=== PATIENT | male | born 1940 | race Caucasian/White ===

== ENCOUNTER 2022-01-23 14:30 | Inpatient (IN) | payer MEDICARE ==
[2022-01-23 16:28] VITALS: BMI 26.7
[2022-01-23] MEDS ORDERED: Nitroglycerin 0.4 MG TAB (25 Tab Bottle) SL PRN (18:08)
[2022-01-23] MEDS ORDERED: Senokot S 8.6-50 MG TAB PO PRN (18:12)
[2022-01-23] MEDS ORDERED: Bisacodyl 5 MG TAB PO PRN (18:12)
[2022-01-23] MEDS ORDERED: Acetaminophen 650 MG Suppository PR PRN (18:12)
[2022-01-23] MEDS ORDERED: Cepastat Lozenges 1 LOZ PO PRN (18:12)
[2022-01-23] MEDS ORDERED: Bisacodyl 10 MG SUPP PR PRN (18:12)
[2022-01-23] MEDS ORDERED: Loperamide HCl 2 MG CAP PO PRN ×2 (18:12)
[2022-01-23] MEDS ORDERED: Calcium Carbonate 500 MG ChewTAB PO PRN (18:12)
[2022-01-23] MEDS ORDERED: Guaifenesin DM 100-10/5 ML UDCUP PO PRN (18:12)
[2022-01-23] MEDS ORDERED: Sodium Chloride 0.65% Nasal 44 ML BOT EA NARE PRN (18:12)
[2022-01-23] MEDS ORDERED: Ondansetron ODT 4 MG TAB PO PRN (18:12)
[2022-01-23] MEDS ORDERED: Benzonatate 100 MG CAP PO PRN (18:12)
[2022-01-23] MEDS ORDERED: Artificial Tear Sol 15 ML BOT EA EYE PRN (18:12)
[2022-01-23] MEDS: Atorvastatin Calcium 20 MG TAB PO SCH (20:41)
[2022-01-23] MEDS: Famotidine 20 MG TAB PO SCH (20:41)
[2022-01-24 06:18] LABS: #Basophils 0.1 thou/uL (0.0-0.2); #Eosinphils 0.2 thou/uL (0.0-0.7); #Lymphocytes 1.8 thou/uL (1.20-3.40); #Neutrophils 8.7 thou/uL (1.40-6.50); %Basophils 0.8 % (0.0-1.0); %Lymphocytes 15.2 % (21.0-51.0); %Monocytes 8.7 % (0.0-10.0); %Neutrophils 73.4 % (42.0-75.0); Mean Corpuscular HGB CONC 31.7 g/dL (32.0-36.0); Mean Corpuscular Hemoglobin 27.5 pg (27.0-31.0); Mean Corpuscular Volume 86.9 fL (78.0-98.0); Mean Platelet Volume 9.3 fL (7.4-10.4); Platelet Count 178 thou/uL (130-400); RBC Distribution Width 14.1 % (11.5-14.5); Red Blood Cell (RBC) Count 3.28 mill/uL (4.70-6.10); White Blood Cell (WBC) Count 11.9 thou/uL (4.8-10.8)
[2022-01-24 06:33] LABS: ALT (SGPT) 19 U/L (8-55); AST (SGOT) 20 U/L (5-34); Albumin 3.6 g/dL (3.4-4.8); Alkaline Phosphatase 87 U/L (40-110); Anion Gap 16 mmol/L (10-20); BUN (Urea Nitrogen) 34 mg/dL (8.4-25.7); Calc. Creatinine Clearance 72 mL/min (70-130); Calcium 8.6 mg/dL (7.8-10.44); Carbon Dioxide 22 mmol/L (23-31); Chloride 101 mmol/L (98-107); Globulin 2.4 g/dL (2.4-3.5); Glucose 114 mg/dL (83-110); Potassium 3.8 mmol/L (3.5-5.1); Sodium 135 mmol/L (136-145)
[2022-01-24] MEDS ORDERED: Enoxaparin Sodium 40 MG/0.4 ML SYRINGE SC SCH (09:00)
[2022-01-24] MEDS: Famotidine 20 MG TAB PO SCH ×2 (09:09→20:12)
[2022-01-24] MEDS: Citalopram 20 MG TAB PO SCH (09:10)
[2022-01-24] MEDS: Aspirin 81 mg Enteric Coated Tablet PO SCH (09:10)
[2022-01-24] MEDS: Oxybutynin ER 5 MG TAB PO SCH (09:10)
[2022-01-24] MEDS: Atenolol 25 MG TAB PO SCH (09:15)
[2022-01-24] MEDS: Amlodipine 5 MG TAB PO SCH (09:16)
[2022-01-24] MEDS: Ondansetron ODT 4 MG TAB SL PRN (10:03)
[2022-01-24 17:24] LABS: Bilirubin Small (Negative); Blood, Urine Trace (Negative); Clarity Clear (Clear); Glucose, Urine (Dipstick) Negative (Negative); Ketone, Urine Trace mg/dL (Negative); Leukocyte Negative (Negative); Nitrite Negative (Negative); Protein, Urine (Dipstick) 100 mg/dL (Neg-Trace); Urobilinogen > or = 8.0 mg/dL (Less than 2); pH, Urine 5.5 (5.0-9.0)
[2022-01-24 17:28] LABS: Squamous Epithelial 0-3 HPF (0-3)
[2022-01-24] MEDS: Acetaminophen 325 MG TAB PO PRN (17:45)
[2022-01-24] MEDS: Atorvastatin Calcium 20 MG TAB PO SCH (20:12)
[2022-01-25 06:16] LABS: #Basophils 0.1 thou/uL (0.0-0.2); #Eosinphils 0.2 thou/uL (0.0-0.7); #Lymphocytes 1.5 thou/uL (1.20-3.40); #Neutrophils 12.3 thou/uL (1.40-6.50); %Basophils 0.6 % (0.0-1.0); %Eosinophils 1.6 % (0.0-10.0); %Lymphocytes 9.6 % (21.0-51.0); %Monocytes 6.7 % (0.0-10.0); %Neutrophils 81.5 % (42.0-75.0); Hemoglobin 8.9 g/dL (14.0-18.0); Mean Corpuscular HGB CONC 29.7 g/dL (32.0-36.0); Mean Corpuscular Hemoglobin 26.6 pg (27.0-31.0); Mean Corpuscular Volume 89.5 fL (78.0-98.0); Mean Platelet Volume 8.6 fL (7.4-10.4); Platelet Count 183 thou/uL (130-400); RBC Distribution Width 14.8 % (11.5-14.5); Red Blood Cell (RBC) Count 3.33 mill/uL (4.70-6.10); White Blood Cell (WBC) Count 15.1 thou/uL (4.8-10.8)
[2022-01-25 06:30] LABS: Anion Gap 17 mmol/L (10-20); BUN (Urea Nitrogen) 34 mg/dL (8.4-25.7); Calc. Creatinine Clearance 79 mL/min (70-130); Calcium 8.5 mg/dL (7.8-10.44); Carbon Dioxide 20 mmol/L (23-31); Chloride 101 mmol/L (98-107); Glucose 110 mg/dL (83-110); Potassium 4.1 mmol/L (3.5-5.1); Sodium 134 mmol/L (136-145)
[2022-01-25] MEDS: Acetaminophen 325 MG TAB PO PRN (06:44)
[2022-01-25] MEDS: Aspirin 81 mg Enteric Coated Tablet PO SCH (08:44)
[2022-01-25] MEDS: Citalopram 20 MG TAB PO SCH (08:45)
[2022-01-25] MEDS: Amlodipine 5 MG TAB PO SCH (08:45)
[2022-01-25] MEDS: Famotidine 20 MG TAB PO SCH ×2 (08:45→20:38)
[2022-01-25] MEDS: Atenolol 25 MG TAB PO SCH (08:45)
[2022-01-25] MEDS: Oxybutynin ER 5 MG TAB PO SCH (08:46)
[2022-01-25] MEDS: Ondansetron ODT 4 MG TAB SL PRN ×2 (08:55→17:30)
[2022-01-25] MEDS ORDERED: Iopamidol 370 76% 100 ML VIAL ONE (09:00)
[2022-01-25] MEDS: Atorvastatin Calcium 20 MG TAB PO SCH (20:38)
[2022-01-26 07:27] LABS: #Basophils 0.1 thou/uL (0.0-0.2); #Eosinphils 0.4 thou/uL (0.0-0.7); #Lymphocytes 1.5 thou/uL (1.20-3.40); #Monocytes 0.8 thou/uL (0.11-0.59); #Neutrophils 11.2 thou/uL (1.40-6.50); %Basophils 0.7 % (0.0-1.0); %Eosinophils 3.1 % (0.0-10.0); %Lymphocytes 10.3 % (21.0-51.0); %Neutrophils 79.8 % (42.0-75.0); Hemoglobin 8.6 g/dL (14.0-18.0); Mean Corpuscular HGB CONC 31.8 g/dL (32.0-36.0); Mean Corpuscular Hemoglobin 27.7 pg (27.0-31.0); Mean Corpuscular Volume 87.1 fL (78.0-98.0); Mean Platelet Volume 9.1 fL (7.4-10.4); Platelet Count 198 thou/uL (130-400); RBC Distribution Width 14.4 % (11.5-14.5); Red Blood Cell (RBC) Count 3.09 mill/uL (4.70-6.10)
[2022-01-26 07:41] LABS: ALT (SGPT) 21 U/L (8-55); AST (SGOT) 20 U/L (5-34); Albumin 3.4 g/dL (3.4-4.8); Alkaline Phosphatase 112 U/L (40-110); Anion Gap 17 mmol/L (10-20); BUN (Urea Nitrogen) 34 mg/dL (8.4-25.7); Bilirubin, Total 1.7 mg/dL (0.2-1.2); Calc. Creatinine Clearance 69 mL/min (70-130); Calcium 8.6 mg/dL (7.8-10.44); Carbon Dioxide 24 mmol/L (23-31); Chloride 98 mmol/L (98-107); Globulin 2.8 g/dL (2.4-3.5); Glucose 92 mg/dL (83-110); Potassium 4.1 mmol/L (3.5-5.1); Protein, Total 6.2 g/dL (5.8-8.1); Sodium 135 mmol/L (136-145)
[2022-01-26] MEDS: Oxybutynin ER 5 MG TAB PO SCH (09:23)
[2022-01-26] MEDS: Amlodipine 5 MG TAB PO SCH (09:24)
[2022-01-26] MEDS: Citalopram 20 MG TAB PO SCH (09:24)
[2022-01-26] MEDS: Famotidine 20 MG TAB PO SCH ×2 (09:24→20:08)
[2022-01-26] MEDS: Atenolol 25 MG TAB PO SCH (09:24)
[2022-01-26 14:32] LABS: Bilirubin Small (Negative); Blood, Urine Negative (Negative); Clarity Cloudy (Clear); Glucose, Urine (Dipstick) Negative (Negative); Ketone, Urine 15 mg/dL (Negative); Leukocyte Negative (Negative); Nitrite Negative (Negative); Protein, Urine (Dipstick) Trace mg/dL (Neg-Trace); Specific Gravity, Urine 1.015 (1.005-1.030)
[2022-01-26 14:37] LABS: RBC/HPF None Seen HPF (0-3); WBC/HPF 0-3 HPF (0-3)
[2022-01-26 14:38] LABS: Bacteria/HPF 3+ HPF (None Seen); Squamous Epithelial 0-3 HPF (0-3)
[2022-01-26] MEDS: Acetaminophen 325 MG TAB PO PRN (20:08)
[2022-01-26] MEDS: Atorvastatin Calcium 20 MG TAB PO SCH (20:08)
[2022-01-27 07:43] LABS: Mean Corpuscular HGB CONC 30.1 g/dL (32.0-36.0); Mean Corpuscular Hemoglobin 26.5 pg (27.0-31.0); Mean Platelet Volume 8.1 fL (7.4-10.4); Platelet Count 221 thou/uL (130-400); RBC Distribution Width 14.2 % (11.5-14.5); Red Blood Cell (RBC) Count 3.02 mill/uL (4.70-6.10); White Blood Cell (WBC) Count 13.7 thou/uL (4.8-10.8)
[2022-01-27 08:03] LABS: ALT (SGPT) 24 U/L (8-55); AST (SGOT) 29 U/L (5-34); Albumin 3.2 g/dL (3.4-4.8); Alkaline Phosphatase 126 U/L (40-110); Anion Gap 16 mmol/L (10-20); BUN (Urea Nitrogen) 25 mg/dL (8.4-25.7); Bilirubin, Total 1.7 mg/dL (0.2-1.2); Calc. Creatinine Clearance 87 mL/min (70-130); Calcium 8.4 mg/dL (7.8-10.44); Carbon Dioxide 23 mmol/L (23-31); Chloride 99 mmol/L (98-107); Globulin 2.7 g/dL (2.4-3.5); Glucose 124 mg/dL (83-110); Protein, Total 5.9 g/dL (5.8-8.1); Sodium 134 mmol/L (136-145)
[2022-01-27] MEDS: Famotidine 20 MG TAB PO SCH ×2 (08:48→20:46)
[2022-01-27] MEDS: Amlodipine 5 MG TAB PO SCH (08:48)
[2022-01-27] MEDS: Atenolol 25 MG TAB PO SCH (08:48)
[2022-01-27] MEDS: Aspirin 81 mg Enteric Coated Tablet PO SCH (08:48)
[2022-01-27] MEDS: Citalopram 20 MG TAB PO SCH (08:48)
[2022-01-27] MEDS: Oxybutynin ER 5 MG TAB PO SCH (08:48)
[2022-01-27 15:01] LABS: Hemoglobin 8.2 g/dL (14.0-18.0); Mean Corpuscular Hemoglobin 26.4 pg (27.0-31.0); Mean Corpuscular Volume 87.8 fL (78.0-98.0); Mean Platelet Volume 8.4 fL (7.4-10.4); Platelet Count 242 thou/uL (130-400); RBC Distribution Width 13.8 % (11.5-14.5); Red Blood Cell (RBC) Count 3.12 mill/uL (4.70-6.10); White Blood Cell (WBC) Count 14.8 thou/uL (4.8-10.8)
[2022-01-27 15:12] LABS: INR-International Normal Ratio 1.3; Prothrombin Time 16.5 sec (12.0-14.7)
[2022-01-27 15:13] LABS: PTT 38.5 sec (22.9-36.1)
[2022-01-27 15:38] LABS: Bilirubin Small (Negative); Blood, Urine Negative (Negative); Clarity Clear (Clear); Glucose, Urine (Dipstick) Negative (Negative); Ketone, Urine Trace mg/dL (Negative); Leukocyte Negative (Negative); Nitrite Negative (Negative); Protein, Urine (Dipstick) 30 mg/dL (Neg-Trace); Urobilinogen > or = 8.0 mg/dL (Less than 2)
[2022-01-27 15:42] LABS: Bacteria/HPF Rare-Few HPF (None Seen); RBC/HPF 0-3 HPF (0-3); Squamous Epithelial 0-3 HPF (0-3)
[2022-01-27 15:59] LABS: Ferritin 537.21 ng/mL (22-322)
[2022-01-27 16:00] LABS: Protein, Urine 22 mg/dL (1-14)
[2022-01-27] MEDS: Atorvastatin Calcium 20 MG TAB PO SCH (20:46)
[2022-01-28 05:29] LABS: #Basophils 0.1 thou/uL (0.0-0.2); #Eosinphils 0.4 thou/uL (0.0-0.7); #Lymphocytes 1.6 thou/uL (1.20-3.40); #Monocytes 0.8 thou/uL (0.11-0.59); #Neutrophils 8.4 thou/uL (1.40-6.50); %Basophils 0.7 % (0.0-1.0); %Eosinophils 3.9 % (0.0-10.0); %Lymphocytes 14.4 % (21.0-51.0); %Monocytes 7.2 % (0.0-10.0); %Neutrophils 73.8 % (42.0-75.0); Hemoglobin 7.9 g/dL (14.0-18.0); Mean Corpuscular HGB CONC 30.3 g/dL (32.0-36.0); Mean Corpuscular Hemoglobin 26.6 pg (27.0-31.0); Mean Corpuscular Volume 87.6 fL (78.0-98.0); Mean Platelet Volume 8.4 fL (7.4-10.4); Platelet Count 230 thou/uL (130-400); RBC Distribution Width 14.5 % (11.5-14.5); Red Blood Cell (RBC) Count 2.96 mill/uL (4.70-6.10); White Blood Cell (WBC) Count 11.4 thou/uL (4.8-10.8)
[2022-01-28 05:44] LABS: ALT (SGPT) 26 U/L (8-55); AST (SGOT) 28 U/L (5-34); Alkaline Phosphatase 124 U/L (40-110); Anion Gap 14 mmol/L (10-20); BUN (Urea Nitrogen) 18 mg/dL (8.4-25.7); Bilirubin, Direct 0.8 mg/dL (0.1-0.3); Bilirubin, Total 1.4 mg/dL (0.2-1.2); Calc. Creatinine Clearance 94 mL/min (70-130); Calcium 8.3 mg/dL (7.8-10.44); Carbon Dioxide 23 mmol/L (23-31); Chloride 100 mmol/L (98-107); Globulin 2.7 g/dL (2.4-3.5); Glucose 107 mg/dL (83-110); Protein, Total 5.7 g/dL (5.8-8.1); Sodium 133 mmol/L (136-145)
[2022-01-28 07:55] LABS: Protein - 24 Hr 237 mg/24 hr (Less than 300); Urine Total Volume 1075 mL (250-2400)
[2022-01-28] MEDS: Atenolol 25 MG TAB PO SCH (08:39)
[2022-01-28] MEDS: Amlodipine 5 MG TAB PO SCH (08:40)
[2022-01-28] MEDS: Oxybutynin ER 5 MG TAB PO SCH (08:40)
[2022-01-28] MEDS: Famotidine 20 MG TAB PO SCH ×2 (08:40→21:07)
[2022-01-28] MEDS: Citalopram 20 MG TAB PO SCH (08:40)
[2022-01-28] MEDS: Aspirin 81 mg Enteric Coated Tablet PO SCH (08:40)
[2022-01-28] MEDS: Ondansetron ODT 4 MG TAB SL PRN (08:42)
[2022-01-28] MEDS: Ondansetron PF 4 MG/2 ML Vial IVP PRN (12:22)
[2022-01-28] MEDS ORDERED: EPINEPHrine 1 MG/ML AMP IVP PRN (12:53)
[2022-01-28] MEDS ORDERED: Ondansetron ODT 4 MG TAB PO PRN (12:58)
[2022-01-28] MEDS ORDERED: diphenhydrAMINE 25 MG CAP PO SCH ×2 (13:00→16:30)
[2022-01-28 14:39] LABS: SARS-CoV-2 PCR by NAA Not Detected (NotDetected)
[2022-01-28] MEDS: Atorvastatin Calcium 20 MG TAB PO SCH (21:07)
[2022-01-29 02:40] LABS: Hemoglobin 9.8 g/dL (14.0-18.0); Mean Corpuscular HGB CONC 29.2 g/dL (32.0-36.0); Mean Corpuscular Hemoglobin 26.6 pg (27.0-31.0); Red Blood Cell (RBC) Count 3.67 mill/uL (4.70-6.10)
[2022-01-29 02:41] LABS: #Basophils 0.1 thou/uL (0.0-0.2); #Eosinphils 0.5 thou/uL (0.0-0.7); #Lymphocytes 1.3 thou/uL (1.20-3.40); #Monocytes 0.8 thou/uL (0.11-0.59); #Neutrophils 7.3 thou/uL (1.40-6.50); %Basophils 0.9 % (0.0-1.0); %Eosinophils 4.8 % (0.0-10.0); %Lymphocytes 13.3 % (21.0-51.0); %Neutrophils 73.1 % (42.0-75.0); Manual Diff?? NO; Mean Platelet Volume 8.4 fL (7.4-10.4); Platelet Count 222 thou/uL (130-400)
[2022-01-29 06:18] LABS: #Basophils 0.1 thou/uL (0.0-0.2); #Eosinphils 0.5 thou/uL (0.0-0.7); #Lymphocytes 1.3 thou/uL (1.20-3.40); #Monocytes 0.7 thou/uL (0.11-0.59); #Neutrophils 7.1 thou/uL (1.40-6.50); %Basophils 1.2 % (0.0-1.0); %Lymphocytes 13.3 % (21.0-51.0); %Monocytes 7.2 % (0.0-10.0); %Neutrophils 73.2 % (42.0-75.0); Hemoglobin 9.6 g/dL (14.0-18.0); Mean Corpuscular HGB CONC 29.8 g/dL (32.0-36.0); Mean Corpuscular Hemoglobin 26.2 pg (27.0-31.0); Mean Platelet Volume 7.9 fL (7.4-10.4); Platelet Count 243 thou/uL (130-400); RBC Distribution Width 13.8 % (11.5-14.5); Red Blood Cell (RBC) Count 3.65 mill/uL (4.70-6.10); White Blood Cell (WBC) Count 9.6 thou/uL (4.8-10.8)
[2022-01-29 06:24] LABS: ALT (SGPT) 26 U/L (8-55); AST (SGOT) 27 U/L (5-34); Albumin 3.1 g/dL (3.4-4.8); Alkaline Phosphatase 122 U/L (40-110); Anion Gap 14 mmol/L (10-20); BUN (Urea Nitrogen) 13 mg/dL (8.4-25.7); Bilirubin, Total 1.5 mg/dL (0.2-1.2); Calc. Creatinine Clearance 89 mL/min (70-130); Calcium 8.5 mg/dL (7.8-10.44); Carbon Dioxide 24 mmol/L (23-31); Chloride 101 mmol/L (98-107); Globulin 2.8 g/dL (2.4-3.5); Glucose 105 mg/dL (83-110); Potassium 4.3 mmol/L (3.5-5.1); Protein, Total 5.9 g/dL (5.8-8.1); Sodium 135 mmol/L (136-145)
[2022-01-29] MEDS: Oxybutynin ER 5 MG TAB PO SCH (08:23)
[2022-01-29] MEDS: Aspirin 81 mg Enteric Coated Tablet PO SCH (08:23)
[2022-01-29] MEDS: Citalopram 20 MG TAB PO SCH (08:23)
[2022-01-29] MEDS: Atenolol 25 MG TAB PO SCH (08:23)
[2022-01-29] MEDS: Famotidine 20 MG TAB PO SCH ×2 (08:23→20:20)
[2022-01-29] MEDS: Amlodipine 5 MG TAB PO SCH (08:30)
[2022-01-29] MEDS: Atorvastatin Calcium 20 MG TAB PO SCH (20:20)
[2022-01-30] MEDS: Aspirin 81 mg Enteric Coated Tablet PO SCH ×2 (08:45→08:46)
[2022-01-30] MEDS: Citalopram 20 MG TAB PO SCH (08:46)
[2022-01-30] MEDS: Ondansetron ODT 4 MG TAB SL PRN (08:46)
[2022-01-30] MEDS: Famotidine 20 MG TAB PO SCH ×2 (08:46→20:20)
[2022-01-30] MEDS: Atenolol 25 MG TAB PO SCH (08:46)
[2022-01-30] MEDS: Oxybutynin ER 5 MG TAB PO SCH (08:46)
[2022-01-30 08:52] LABS: #Basophils 0.1 thou/uL (0.0-0.2); #Eosinphils 0.5 thou/uL (0.0-0.7); #Lymphocytes 1.1 thou/uL (1.20-3.40); #Monocytes 0.8 thou/uL (0.11-0.59); #Neutrophils 7.9 thou/uL (1.40-6.50); %Eosinophils 4.6 % (0.0-10.0); %Lymphocytes 10.6 % (21.0-51.0); %Monocytes 7.9 % (0.0-10.0); %Neutrophils 75.9 % (42.0-75.0); Hemoglobin 10.6 g/dL (14.0-18.0); Mean Corpuscular HGB CONC 30.9 g/dL (32.0-36.0); Mean Corpuscular Hemoglobin 26.9 pg (27.0-31.0); Mean Platelet Volume 7.9 fL (7.4-10.4); Platelet Count 244 thou/uL (130-400); RBC Distribution Width 13.8 % (11.5-14.5); Red Blood Cell (RBC) Count 3.96 mill/uL (4.70-6.10); White Blood Cell (WBC) Count 10.4 thou/uL (4.8-10.8)
[2022-01-30] MEDS ORDERED: Iopamidol 370 76% 100 ML VIAL ONE ×2 (09:00)
[2022-01-30 09:08] LABS: Anion Gap 17 mmol/L (10-20); BUN (Urea Nitrogen) 13 mg/dL (8.4-25.7); CK (CPK) 21 U/L (30-200); Calc. Creatinine Clearance 95 mL/min (70-130); Calcium 8.4 mg/dL (7.8-10.44); Carbon Dioxide 21 mmol/L (23-31); Chloride 102 mmol/L (98-107); Glucose 117 mg/dL (83-110); Potassium 4.6 mmol/L (3.5-5.1); Sodium 135 mmol/L (136-145)
[2022-01-30 09:25] LABS: CKMB 0.7 ng/mL (0-6.6)
[2022-01-30] MEDS ORDERED: Acetaminophen 325 MG TAB ONE (09:35)
[2022-01-30] MEDS: Acetaminophen 325 MG TAB PO PRN (09:38)
[2022-01-30] MEDS ORDERED: Morphine 4 MG/ML VIAL SLOW IVP SCH (11:15)
[2022-01-30] MEDS ORDERED: Morphine 4 MG/ML VIAL ONE (12:34)
[2022-01-30] MEDS ORDERED: Ondansetron PF 4 MG/2 ML Vial ONE (12:34)
[2022-01-30] MEDS: Ondansetron PF 4 MG/2 ML Vial IVP PRN (12:47)
[2022-01-30 13:13] LABS: Bilirubin Negative (Negative); Blood, Urine Negative (Negative); Clarity Clear (Clear); Glucose, Urine (Dipstick) 100 mg/dL (Negative); Ketone, Urine Negative (Negative); Leukocyte Negative (Negative); Nitrite Negative (Negative); Protein, Urine (Dipstick) Negative (Neg-Trace); Specific Gravity, Urine 1.015 (1.005-1.030); Urobilinogen > or = 8.0 mg/dL (Less than 2)
[2022-01-30 13:24] LABS: Urine Culture Reflex No No
[2022-01-30 13:29] LABS: Bacteria/HPF Rare-Few HPF (None Seen); RBC/HPF 0-3 HPF (0-3); Squamous Epithelial 0-3 HPF (0-3)
[2022-01-30] MEDS: Atorvastatin Calcium 20 MG TAB PO SCH (20:20)
[2022-01-31] MEDS: Citalopram 20 MG TAB PO SCH (09:20)
[2022-01-31] MEDS: Oxybutynin ER 5 MG TAB PO SCH (09:20)
[2022-01-31] MEDS: Famotidine 20 MG TAB PO SCH ×2 (09:21→21:36)
[2022-01-31] MEDS: Atenolol 25 MG TAB PO SCH (09:21)
[2022-01-31] MEDS: Acetaminophen 325 MG TAB PO PRN ×2 (09:32→21:47)
[2022-01-31] MEDS: Atorvastatin Calcium 20 MG TAB PO SCH (21:36)
[2022-02-01 06:05] LABS: #Basophils 0.1 thou/uL (0.0-0.2); #Eosinphils 0.4 thou/uL (0.0-0.7); #Lymphocytes 1.3 thou/uL (1.20-3.40); #Monocytes 0.7 thou/uL (0.11-0.59); #Neutrophils 5.4 thou/uL (1.40-6.50); %Basophils 1.5 % (0.0-1.0); %Eosinophils 4.9 % (0.0-10.0); %Lymphocytes 16.1 % (21.0-51.0); %Monocytes 8.9 % (0.0-10.0); %Neutrophils 68.7 % (42.0-75.0); Mean Corpuscular HGB CONC 30.7 g/dL (32.0-36.0); Mean Corpuscular Volume 87.9 fL (78.0-98.0); Mean Platelet Volume 7.8 fL (7.4-10.4); Platelet Count 287 thou/uL (130-400); RBC Distribution Width 14.1 % (11.5-14.5); White Blood Cell (WBC) Count 7.9 thou/uL (4.8-10.8)
[2022-02-01 06:14] LABS: Anion Gap 12 mmol/L (10-20); BUN (Urea Nitrogen) 13 mg/dL (8.4-25.7); Calc. Creatinine Clearance 95 mL/min (70-130); Calcium 8.5 mg/dL (7.8-10.44); Carbon Dioxide 24 mmol/L (23-31); Chloride 104 mmol/L (98-107); Glucose 95 mg/dL (83-110); Potassium 4.3 mmol/L (3.5-5.1); Sodium 136 mmol/L (136-145)
[2022-02-01] MEDS: Acetaminophen 325 MG TAB PO PRN ×2 (08:22→20:48)
[2022-02-01] MEDS: Aspirin 81 mg Enteric Coated Tablet PO SCH (08:24)
[2022-02-01] MEDS: Atenolol 25 MG TAB PO SCH (08:24)
[2022-02-01] MEDS: Famotidine 20 MG TAB PO SCH ×2 (08:24→20:48)
[2022-02-01] MEDS: Citalopram 20 MG TAB PO SCH (08:25)
[2022-02-01] MEDS: Oxybutynin ER 5 MG TAB PO SCH (08:25)
[2022-02-01] MEDS: Atorvastatin Calcium 20 MG TAB PO SCH (20:48)
[2022-02-02] MEDS: Aspirin 81 mg Enteric Coated Tablet PO SCH (08:48)
[2022-02-02] MEDS: Citalopram 20 MG TAB PO SCH (08:49)
[2022-02-02] MEDS: Atenolol 25 MG TAB PO SCH (08:49)
[2022-02-02] MEDS: Oxybutynin ER 5 MG TAB PO SCH (08:49)
[2022-02-02] MEDS: Famotidine 20 MG TAB PO SCH (08:49)
[2022-02-02 11:43] VITALS: BP 130/63; TEMP 98.3
== END 2022-02-02 12:40 | disposition home or self-care (01) | DRG 949 ==
LOC: NAV ACUTE 16:09
PROVIDERS: ADMIT Family Medicine; ATTEND Family Medicine
PROC: 30233N1 Transfusion of Nonautologous Red Blood Cells into Peripheral Vein, Percutaneous Approach (ICD-10-PCS; principal; 2022-01-28)
DX: Z48.812 Encounter for surgical aftercare following surgery on the circulatory system (principal); J90 Pleural effusion, not elsewhere classified; D62 Acute posthemorrhagic anemia; K21.9 Gastro-esophageal reflux disease without esophagitis; I25.10 Atherosclerotic heart disease of native coronary artery without angina pectoris; I10 Essential (primary) hypertension; R53.81 Other malaise; M19.90 Unspecified osteoarthritis, unspecified site; Z96.652 Presence of left artificial knee joint; R82.2 Biliuria; F41.8 Other specified anxiety disorders; D72.829 Elevated white blood cell count, unspecified; K59.00 Constipation, unspecified; R58 Hemorrhage, not elsewhere classified; I95.9 Hypotension, unspecified; S31.103A Unspecified open wound of abdominal wall, right lower quadrant without penetration into peritoneal cavity, initial encounter; R07.9 Chest pain, unspecified; I71.4 Abdominal aortic aneurysm, without rupture; Z98.1 Arthrodesis status; Z20.822 Contact with and (suspected) exposure to COVID-19; Z82.49 Family history of ischemic heart disease and other diseases of the circulatory system; Z87.891 Personal history of nicotine dependence; Z72.89 Other problems related to lifestyle; Z95.0 Presence of cardiac pacemaker; Z95.1 Presence of aortocoronary bypass graft; Z79.899 Other long term (current) drug therapy; Z79.82 Long term (current) use of aspirin; Z85.51 Personal history of malignant neoplasm of bladder; Z86.718 Personal history of other venous thrombosis and embolism
CPT/HCPCS: 36415; 36416; 36430; 71045; 71275; 74177; 80048; 80053; 81001; 82247; 82550; 82553; 82607; 82728; 82746; 84156; 84484; 85025; 85027; 85379; 85610; 85730; 86850; 86900; 86901; 87086; J1650; J2270; J2405; P9016; Q0162; Q9967; U0003; U0005

== ENCOUNTER 2024-01-28 15:03 | Inpatient (IN) | payer MEDICARE ==
[2024-01-28] MEDS: Ascorbic Acid 500 mg Chewable Tablet PO SCH (21:51)
[2024-01-29 06:12] LABS: #Basophils 0.1 thou/uL (0.0-0.2); #Eosinphils 0.4 thou/uL (0.0-0.7); #Lymphocytes 1.7 thou/uL (1.20-3.40); #Monocytes 0.5 thou/uL (0.11-0.59); #Neutrophils 3.6 thou/uL (1.40-6.50); %Basophils 1.5 % (0.0-1.0); %Lymphocytes 26.6 % (21.0-51.0); %Monocytes 7.9 % (0.0-10.0); Hematocrit 28.5 % (42.0-52.0); Hemoglobin 8.5 g/dL (14.0-18.0); Mean Corpuscular HGB CONC 29.9 g/dL (32.0-36.0); Mean Corpuscular Hemoglobin 24.3 pg (27.0-31.0); Mean Corpuscular Volume 81.1 fl (78.0-98.0); Mean Platelet Volume 6.9 fL (7.4-10.4); Platelet Count 188 10x3/uL (130-400); RBC Distribution Width 18.6 % (11.5-14.5); Red Blood Cell (RBC) Count 3.51 mill/uL (4.70-6.10); White Blood Cell (WBC) Count 6.3 10x3/uL (4.8-10.8)
[2024-01-29 06:15] LABS: ALT (SGPT) 17 U/L (8-55); AST (SGOT) 13 U/L (5-34); Alkaline Phosphatase 64 U/L (40-110); Anion Gap 12 mmol/L (10-20); BUN (Urea Nitrogen) 17 mg/dL (8.4-25.7); Bilirubin, Total 0.3 mg/dL (0.2-1.2); Calc. Creatinine Clearance 81 mL/min (70-130); Carbon Dioxide 26 mmol/L (23-31); Chloride 100 mmol/L (98-107); Estimated GFR 88; Globulin 3.1 g/dL (2.4-3.5); Glucose 95 mg/dL (83-110); Potassium 3.4 mmol/L (3.5-5.1); Protein, Total 6.1 g/dL (5.8-8.1); Sodium 135 mmol/L (136-145)
[2024-01-29] MEDS: Enoxaparin 40 MG (0.4 mL) SYRINGE SC SCH (08:13)
[2024-01-29] MEDS: Ferrous Sulfate 325 MG TAB PO SCH (08:13)
[2024-01-29] MEDS: Fosfomycin 3 GM/Packet PO SCH (08:13)
[2024-01-29] MEDS: Hydrochlorothiazide 25 MG TAB PO SCH (08:13)
[2024-01-29] MEDS: Losartan 25 MG TAB PO SCH (08:14)
[2024-01-29] MEDS: Atenolol 25 MG TAB PO SCH (08:18)
[2024-01-29] MEDS: Atorvastatin Calcium 20 MG TAB PO SCH (08:18)
[2024-01-29] MEDS: Potassium Chloride 20 MEQ TAB PO SCH (08:18)
[2024-01-29] MEDS: Pantoprazole DR 40 MG TAB PO SCH (08:19)
[2024-01-29] MEDS: Aspirin 81 mg Enteric Coated Tablet PO SCH (08:19)
[2024-01-29] MEDS: Citalopram 20 MG TAB PO SCH (08:19)
[2024-01-29] MEDS: Furosemide 40 MG TAB PO SCH (08:19)
[2024-01-29] MEDS: HYDROcodone/Acetaminophen 10/325 mg Tablet PO PRN (08:19)
[2024-01-29] MEDS: Docusate 100 MG CAP PO SCH (08:19)
[2024-01-29] MEDS: Ondansetron ODT 4 MG TAB SL PRN (10:01)
[2024-01-29] MEDS: Lidocaine 4% Patch TD SCH (14:46)
[2024-01-29] MEDS: Senokot S 8.6-50 MG TAB PO PRN (19:58)
[2024-01-31 05:23] LABS: #Basophils 0.1 thou/uL (0.0-0.2); #Eosinphils 0.5 thou/uL (0.0-0.7); #Lymphocytes 1.8 thou/uL (1.20-3.40); #Monocytes 0.4 thou/uL (0.11-0.59); #Neutrophils 2.5 thou/uL (1.40-6.50); %Eosinophils 9.2 % (0.0-10.0); %Lymphocytes 34.1 % (21.0-51.0); %Monocytes 7.5 % (0.0-10.0); %Neutrophils 47.3 % (42.0-75.0); Hematocrit 30.4 % (42.0-52.0); Hemoglobin 9.2 g/dL (14.0-18.0); Mean Corpuscular HGB CONC 30.1 g/dL (32.0-36.0); Mean Corpuscular Hemoglobin 24.5 pg (27.0-31.0); Mean Corpuscular Volume 81.4 fl (78.0-98.0); Platelet Count 182 10x3/uL (130-400); RBC Distribution Width 18.4 % (11.5-14.5); Red Blood Cell (RBC) Count 3.73 mill/uL (4.70-6.10); White Blood Cell (WBC) Count 5.3 10x3/uL (4.8-10.8)
[2024-01-31 05:34] LABS: Anion Gap 14 mmol/L (10-20); BUN (Urea Nitrogen) 25 mg/dL (8.4-25.7); Calc. Creatinine Clearance 61 mL/min (70-130); Calcium 9.3 mg/dL (7.8-10.44); Carbon Dioxide 27 mmol/L (23-31); Chloride 100 mmol/L (98-107); Estimated GFR 71; Glucose 92 mg/dL (83-110); Potassium 4.1 mmol/L (3.5-5.1); Sodium 137 mmol/L (136-145)
[2024-01-31] MEDS: Bisacodyl 5 MG TAB PO PRN (16:53)
[2024-02-01] MEDS ORDERED: Losartan 25 MG TAB PO SCH (09:00)
[2024-02-01] MEDS: Atenolol 25 MG TAB PO SCH (09:48)
[2024-02-01] MEDS: Polyethylene Glycol 3350 17 GM Packet PO SCH (10:41)
[2024-02-03] MEDS: Docusate 100 MG CAP PO SCH (08:27)
[2024-02-03] MEDS: Bisacodyl 10 MG SUPP PR PRN (18:27)
[2024-02-06 10:39] LABS: Anion Gap 13 mmol/L (10-20); BUN (Urea Nitrogen) 20 mg/dL (8.4-25.7); Calc. Creatinine Clearance 90 mL/min (70-130); Calcium 9.2 mg/dL (7.8-10.44); Carbon Dioxide 27 mmol/L (23-31); Chloride 103 mmol/L (98-107); Estimated GFR 89; Glucose 111 mg/dL (83-110); Potassium 4.2 mmol/L (3.5-5.1); Sodium 139 mmol/L (136-145)
[2024-02-06 10:46] LABS: #Basophils 0.1 thou/uL (0.0-0.2); #Eosinphils 0.5 thou/uL (0.0-0.7); #Lymphocytes 1.2 thou/uL (1.20-3.40); #Monocytes 0.3 thou/uL (0.11-0.59); #Neutrophils 2.5 thou/uL (1.40-6.50); %Basophils 1.7 % (0.0-1.0); %Eosinophils 10.4 % (0.0-10.0); %Lymphocytes 26.8 % (21.0-51.0); %Monocytes 7.1 % (0.0-10.0); Hematocrit 31.8 % (42.0-52.0); Hemoglobin 9.2 g/dL (14.0-18.0); Mean Corpuscular HGB CONC 28.9 g/dL (32.0-36.0); Mean Corpuscular Hemoglobin 24.2 pg (27.0-31.0); Mean Corpuscular Volume 83.8 fl (78.0-98.0); Mean Platelet Volume 7.3 fL (7.4-10.4); Platelet Count 161 10x3/uL (130-400); RBC Distribution Width 18.9 % (11.5-14.5); Red Blood Cell (RBC) Count 3.79 mill/uL (4.70-6.10); White Blood Cell (WBC) Count 4.6 10x3/uL (4.8-10.8)
[2024-02-06] MEDS: Acetaminophen 325 MG TAB PO PRN (11:40)
[2024-02-08] MEDS: Gabapentin 300 MG CAP PO SCH (15:07)
[2024-02-08] MEDS: Baclofen 10 MG TAB PO PRN (18:12)
[2024-02-09] MEDS: HYDROcodone/Acetaminophen 10/325 mg Tablet ONE (06:49)
[2024-02-10 10:50] VITALS: BMI 26.2
[2024-02-12 05:22] VITALS: BMI 26.6
[2024-02-12 05:53] LABS: #Basophils 0.1 thou/uL (0.0-0.2); #Eosinphils 0.4 thou/uL (0.0-0.7); #Lymphocytes 1.8 thou/uL (1.20-3.40); #Monocytes 0.5 thou/uL (0.11-0.59); #Neutrophils 1.7 thou/uL (1.40-6.50); %Basophils 1.6 % (0.0-1.0); %Eosinophils 9.5 % (0.0-10.0); %Lymphocytes 39.6 % (21.0-51.0); %Monocytes 10.1 % (0.0-10.0); %Neutrophils 39.3 % (42.0-75.0); Hematocrit 31.7 % (42.0-52.0); Hemoglobin 9.2 g/dL (14.0-18.0); Mean Corpuscular HGB CONC 28.9 g/dL (32.0-36.0); Mean Corpuscular Hemoglobin 24.4 pg (27.0-31.0); Mean Corpuscular Volume 84.6 fl (78.0-98.0); Mean Platelet Volume 8.4 fL (7.4-10.4); Platelet Count 139 10x3/uL (130-400); RBC Distribution Width 19.6 % (11.5-14.5); Red Blood Cell (RBC) Count 3.75 mill/uL (4.70-6.10); White Blood Cell (WBC) Count 4.4 10x3/uL (4.8-10.8)
[2024-02-12 06:02] LABS: Anion Gap 14 mmol/L (10-20); BUN (Urea Nitrogen) 23 mg/dL (8.4-25.7); Calc. Creatinine Clearance 95 mL/min (70-130); Calcium 9.1 mg/dL (7.8-10.44); Carbon Dioxide 23 mmol/L (23-31); Chloride 107 mmol/L (98-107); Estimated GFR 90; Glucose 79 mg/dL (83-110); Sodium 140 mmol/L (136-145)
[2024-02-13] MEDS: HYDROcodone/Acetaminophen 10/325 mg Tablet ONE ×2 (06:27→06:30)
[2024-02-14 11:04] LABS: #Basophils 0.1 thou/uL (0.0-0.2); #Eosinphils 0.3 thou/uL (0.0-0.7); #Lymphocytes 1.6 thou/uL (1.20-3.40); #Monocytes 0.6 thou/uL (0.11-0.59); %Basophils 0.5 % (0.0-1.0); %Eosinophils 3.2 % (0.0-10.0); %Lymphocytes 15.2 % (21.0-51.0); %Monocytes 5.9 % (0.0-10.0); %Neutrophils 75.2 % (42.0-75.0); Hematocrit 36.7 % (42.0-52.0); Hemoglobin 10.4 g/dL (14.0-18.0); Mean Corpuscular HGB CONC 28.3 g/dL (32.0-36.0); Mean Corpuscular Hemoglobin 24.6 pg (27.0-31.0); Mean Corpuscular Volume 86.9 fl (78.0-98.0); Mean Platelet Volume 8.1 fL (7.4-10.4); Platelet Count 130 10x3/uL (130-400); RBC Distribution Width 19.6 % (11.5-14.5); Red Blood Cell (RBC) Count 4.23 mill/uL (4.70-6.10); White Blood Cell (WBC) Count 10.6 10x3/uL (4.8-10.8)
[2024-02-14 11:24] LABS: ALT (SGPT) 20 U/L (8-55); AST (SGOT) 15 U/L (5-34); Albumin 3.7 g/dL (3.4-4.8); Alkaline Phosphatase 64 U/L (40-110); Anion Gap 16 mmol/L (10-20); BUN (Urea Nitrogen) 20 mg/dL (8.4-25.7); Bilirubin, Total 0.5 mg/dL (0.2-1.2); Calc. Creatinine Clearance 90 mL/min (70-130); Calcium 9.4 mg/dL (7.8-10.44); Carbon Dioxide 23 mmol/L (23-31); Chloride 104 mmol/L (98-107); Estimated GFR 89; Globulin 3.2 g/dL (2.4-3.5); Glucose 91 mg/dL (83-110); Potassium 4.1 mmol/L (3.5-5.1); Protein, Total 6.9 g/dL (5.8-8.1); Sodium 139 mmol/L (136-145)
[2024-02-14 11:34] LABS: Bilirubin Negative (Negative); Blood, Urine Small (Negative); Glucose, Urine (Dipstick) Negative (Negative); Ketone, Urine Negative (Negative); Leukocyte Moderate (Negative); Nitrite Positive (Negative); Protein, Urine (Dipstick) Trace mg/dL (Neg-Trace); Urobilinogen 0.2 mg/dL (Less than 2); pH, Urine 5.5 (5.0-9.0)
[2024-02-14 11:42] LABS: Clarity Cloudy (Clear)
[2024-02-14 11:43] LABS: Bacteria/HPF 3+ HPF (None Seen); CAUTI Indications for Culture Alt mental st,lethar; Squamous Epithelial 0-3 HPF (0-3); Transitional Epithelial 0-3 HPF (None Seen); WBC/HPF Greater than 50 HPF (0-3); Yeast-Budding 3+ HPF (None Seen); Yeast-Hyphae 3+ HPF (None Seen)
[2024-02-14 11:45] LABS: Urine Culture Reflex Yes Yes
[2024-02-14 11:48] VITALS: BP 115/56; TEMP 98.8
[2024-02-14] MEDS ORDERED: Aspirin 81 mg Enteric Coated Tablet PO SCH (12:00)
[2024-02-14] MEDS ORDERED: Aspirin 325 mg Enteric Coated Tablet PO SCH (12:00)
[2024-02-14] MEDS: Aspirin 81 mg Enteric Coated Tablet PO SCH (12:04)
== END 2024-02-14 13:01 | disposition short-term general hospital (02) | DRG 947 ==
LOC: NAV ACUTE 19:34
PROVIDERS: ADMIT Family Medicine; ATTEND Family Medicine
DX: R53.81 Other malaise (principal); G93.41 Metabolic encephalopathy; G83.4 Cauda equina syndrome; N39.0 Urinary tract infection, site not specified; T83.510A Infection and inflammatory reaction due to cystostomy catheter, initial encounter; G82.20 Paraplegia, unspecified; I25.10 Atherosclerotic heart disease of native coronary artery without angina pectoris; G31.9 Degenerative disease of nervous system, unspecified; I10 Essential (primary) hypertension; E78.5 Hyperlipidemia, unspecified; K21.9 Gastro-esophageal reflux disease without esophagitis; F41.9 Anxiety disorder, unspecified; Z96.652 Presence of left artificial knee joint; D64.9 Anemia, unspecified; E87.6 Hypokalemia; Z98.890 Other specified postprocedural states; Z95.1 Presence of aortocoronary bypass graft; Z85.51 Personal history of malignant neoplasm of bladder; Z99.3 Dependence on wheelchair; R29.898 Other symptoms and signs involving the musculoskeletal system
CPT/HCPCS: 36415; 70450; 71045; 80048; 80053; 81001; 82140; 84443; 85025; 87077; 87086; 87186; 97602; J1650; Q0162